=== PATIENT | male | born 1980 | race Caucasian/White ===

== ENCOUNTER 2024-02-08 18:21 | Emergency (ER) | payer OTHER ==
[2024-02-08] MEDS: Lidocaine 1% with EPINEPHrine 1:100,000 20 ML MDV INJECT ONE (20:12)
[2024-02-08] MEDS: Diphtheria,Pertussis(Acell),Tetanus Vaccine 0.5 ML Syringe IM ONE (20:23)
[2024-02-08] MEDS: Bacitracin Oint 1 GM U/D Packet TOP ONE (20:23)
== END 2024-02-08 20:57 | disposition home or self-care (01) ==
LOC: JP.ED 18:21
DX: S92.315A Nondisplaced fracture of first metatarsal bone, left foot, initial encounter for closed fracture (principal); S91.311A Laceration without foreign body, right foot, initial encounter; Z23 Encounter for immunization; W20.8XXA Other cause of strike by thrown, projected or falling object, initial encounter
CPT/HCPCS: 12002; 73630-26-LT; 73630-LT; 90471; 90715; 99283-25